=== PATIENT | female | born 1975 | race African-American/Black ===

== ENCOUNTER 2020-10-08 12:05 | Emergency (ER) | payer OTHER ==
[~2020-10-08] VITALS: Ht 162.6 cm; Wt 65.8 kg
[2020-10-08 12:17] VITALS: BP 117/80
[2020-10-08] MEDS ORDERED: NAPR-54 PO (14:04)
[2020-10-08 14:22] VITALS: BP 125/76
== END 2020-10-08 14:22 | disposition home or self-care (01) ==
LOC: MED 12:05
DX: S93.401A Sprain of unspecified ligament of right ankle, initial encounter (principal); W10.8XXA Fall (on) (from) other stairs and steps, initial encounter; Y93.89 Activity, other specified; Y92.89 Other specified places as the place of occurrence of the external cause; Y99.8 Other external cause status
CPT/HCPCS: 29515; 73590; 73610; 99284